=== PATIENT | male | born 1945 | race Caucasian/White ===

== ENCOUNTER → 2016-07-16 | Day surgery (SDC) | payer BC ==
[~2016-07-16] VITALS: Ht 177.8 cm; Wt 88.4 kg
[~2016-07-16] MED LIST: ASPI-110 PO; BACITRACIN TOP OINT 15 GM TUBE TOPICAL ONE; BUPIVACAINE HCL PF 0.5% 30 ML VIAL NERV BLOCK ONE; CARV12.52 PO; CHLORHEXIDINE GLUCONATE 2 % 1 PACK (2 CLOTHS) TOPICAL PRN; CIAL5TAB PO; DEXI60CA PO; DICLOFENAC SODIUM 37.5 MG/ML VIAL IV PUSH ONE; DO NOT ADM ANY ANTICOAGULANT DRUGS PRN; FAMOTIDINE 20 MG/2 ML VIAL ONE; FURO20TA PO; GELATIN 12 MM/7 MM FOAM ONE; GELFOAM SIZE 100 ONE; HYDROmorphone HCL PF 1 MG/ML VIAL IV PRN; INSULIN HUMAN REGULAR 1,000 UNITS/10 ML VIAL SQ PRN; LACTATED RINGER'S 1000 ML INJ 1,000 ML IV ONE; LACTATED RINGER'S 1000 ML IV PRN; METOPROLOL TARTRATE 25 MG TAB PO PRN; MIDAZOLAM HCL 2 MG/2 ML VIAL ONE; MULTTAB67 PO; NEOSTIGMINE 3 MG/3 ML SYR IV ONE; OCUF0.3D EACH EYE; OMEGCAP PO; ONDANSETRON HCL 4 MG/2 ML VIAL IV PUSH ONE; ONDANSETRON HCL 4 MG/2 ML VIAL IV PUSH PRN; POVIDONE IODINE 5% (ANTISEPSIS KIT) 4 APPLICATIONS EACH NARE PRN; PROPOFOL 200 MG/20 ML AMP IV ONE; ROSU20 PO; SODIUM CHLORID 0.9% 500 ML IV PRN; TIMO0.5S30 RIGHT EYE; VITA100021 SL; ceFAZolin 2 GM PREMIX 50 ML IV SCH; ceFAZolin INJ 1,000 MG VIAL IV ONE; ePHEDrine/NS 25 MG/5 ML SYR IV ONE; fentaNYL CITRATE 250 MCG/5 ML AMP ONE; oxyCODONE/ACETAMINOPHEN 5 MG/325 MG TAB PO PRN
[2016-07-16 06:40] VITALS: BP 112/69; PULSE 57; RESP 18; TEMP 97.8; O2SAT 97
--- NOTE | 2016-07-16 09:36 | EKG ---
Date Performed: 07/16/2016 Time Performed: 06:50:40 PTAGE: 71 years EKG: Sinus rhythm NORMAL ECG PREVIOUS TRACING : 02/13/2016 10.45 No significant change from previous tracing noted. DOCTOR: Jerry Campo Interpretating Date/Time 07/16/2016 09:35:23
--- NOTE | 2016-07-16 12:52 | RADRPT ---
EXAM DATE/TIME: 07/16/2016 09:57 [place] COMPARISON: WRIST LEFT LIMITED (AP & LAT), February 13, 2016, 13:23. INDICATIONS : Left wrist fusion. MEDICAL HISTORY : None. SURGICAL HISTORY : None. ENCOUNTER: Initial ACUITY: 1 day PAIN SCORE: Non-responsive. LOCATION: Left wrist. FINDINGS: 3 spot fluoroscopic images obtained in the operating room during a procedure demonstrate placement of a posterior distal radial and carpal bone plate with multiple interlocking screws. The plate jose es the radiocarpal joint and intercarpal joints. CONCLUSION: Spot fluoroscopic images obtained during left wrist fusion, as above. Homar Waller MD on July 16, 2016 at 12:49 Board Certified Radiologist. This report was verified electronically.
[2016-07-16 16:00] VITALS: BP 102/51; PULSE 76; RESP 18; TEMP 98.5; O2SAT 98
--- NOTE | 2016-07-17 19:06 | MP ---
cc: JASPER JACOBS MD DATE OF SURGERY 07/16/2016 PREOPERATIVE DIAGNOSIS Hardware loosening after left wrist fusion February 13, 2016 with partial fusion POSTOPERATIVE DIAGNOSIS Hardware loosening after left wrist fusion February 13, 2016 with partial fusion PROCEDURE 1. Removal of hardware left wrist. 2. Revision left radiocarpal and mid carpal fusion left wrist with [employer] fusion plate with allograft bone grafting left wrist. SURGEON Dr. Nic Jacobs ANESTHESIA Regional and general TOURNIQUET TIME Two hours at 250 mmHg then the tourniquet was released for 20 minutes then reinflated for an additional 73 minutes. IMPLANTS 1. [employer] fusion plate. 2. DBX bone putty as well as allograft cancellous chips. 3. Hardware removed [employer] wrist fusion plate. INDICATIONS FOR PROCEDURE [place] in a pleasant 70-year-old right-hand dominant male five months status post left wrist fusion with a [employer] fusion plate. The patient had been progressing well and was not complaining of any pain or problems, but a routine x-ray in June showed loosening of the three screws over the metacarpal. CT scan showed fusion of the mid carpus, but incomplete fusion over the radial carpal joint. Treatment options were discussed with the patient including continued conservative management with a bone stimulator versus removal of the hardware and revision fusion. The patient elected to proceed with revision fusion due to the loosening of the screws. He did not consent to iliac crest bone grafting. He did elect to proceed with the allograft bone grafting. Risks were explained which are not limited to persistent incomplete fusion, complications with the hardware, pain, paresthesias, stiffness, need for additional surgeries including dressing at the DRUJ or CMC joint. DESCRIPTION OF PROCEDURE The patient was identified in the preoperative holding area and the correct extremity was marked. The patient was taken back to the operating room where a regional block was performed by Dr. Simpson of anesthesia. The left upper extremity was prepped and draped in normal sterile fashion. Under x-ray again there was confirmed the loose screws over the metacarpal with the [employer] fusion plate. Tourniquet was inflated to 250 mmHg for 2 hours. The prior longitudinal incision which was well-healed was incised. There was significant scarring over the extensor tendon, however, the patient did have excellent range of motion. Care was taken to protect the retinacular tissue. The prior sutures were identified. The extensor pollicis longus had already been transposed and had good function. Care was taken to protect the tendons of the fourth extensor compartment. The capsular repair was incised. The plate was identified. The metacarpal screws were loose and removed without any complication and the remainder of the screws were removed which were well fixed as well as the plate without any complications. Upon doing this, both on visual inspection and under fluoroscopy, there actually was noted to be excellent fusion of the radiocarpal joint. 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 Again, the patient had not consented to iliac crest bone grafting. A decision was made to use 30 mL of allograft cancellous chips as well as 10 mL of DBX bone putty. This was mixed and placed at the areas of nonunion which were prior freshened with a bur which was water cooled. A decision was made to use a [employer] plate as this plate does not go over the metacarpal and thus spares the CMC joint. This was placed under fluoroscopy and again there was good fusion of the scaphoid and the lunate as well as the capitate to the mid carpus. There was no union between the scaphoid and trapezium and an area of nonunion over the scaphoid, but again there was good union between the lunate and radius. The DRUJ was protected as well as the CMC joint. Initially, a nonlocking screw was placed distally and then proximally to gain good compression over the site and additional locking screws were placed in the plate both proximally and distally which had excellent fixation into the segments and was confirmed under fluoroscopy the length of the screws. The tourniquet was released after 2 hours for 20 minutes and then reinflated for closure for 73 minutes. The capsule was then closed with PDS. The extensor retinaculum was closed with PDS and the skin was closed with Monocryl and nylon. The patient was placed into a splint and awaken from anesthesia without any complications. He does have a bone stimulator from prior which he will begin using and he understands the importance of being compliant with postoperative protocol as he admitted after the last surgery he was lifting heavy weights prior to being cleared. Hopefully, as he does have a very good partial fusion he will obtain complete fusion. He does understand unfortunately there are still risks with hardware, malfunction loosening fracture, persistent pain. He was given a prescription for antibiotics as well as pain control. MD MARLEE Haider /8:59 PM /6:38 PM MTDD
== END | disposition home or self-care (01) ==
LOC: HSDC 05:58
PROVIDERS: ATTEND Orthopaedic Surgery
DX: M19.032 Primary osteoarthritis, left wrist (principal); I10 Essential (primary) hypertension
CPT/HCPCS: 01830; 25810; 73100; 76000; 93005; C1713; J0690; J2250; J2405; J2710; J3010; J7120; J1130